=== PATIENT | female | born 1995 | race African-American/Black ===

== ENCOUNTER 2018-08-02 13:54 | Outpatient (CLI) | payer OTHER ==
[2018-08-02 14:29] LABS: ADD UMIC YES; UR ASCORBIC ACID NEGATIVE (NEGATIVE); UR BACTERIA FEW /HPF (NONE SEEN); UR BILIRUBIN (Dip) NEGATIVE (NEGATIVE); UR BLOOD (Dip) NEGATIVE (NEGATIVE); UR CLARITY CLOUDY (CLEAR); UR COLOR YELLOW (YELLOW); UR GLUCOSE (Dip) NEGATIVE (NEGATIVE); UR KETONES (Dip) NEGATIVE (NEGATIVE); UR LEUKOCYTE ESTERASE (Dip) TRACE Leu/ul (NEGATIVE); UR MUCUS MODERATE /HPF (NONE SEEN); UR NITRITE (Dip) NEGATIVE (NEGATIVE); UR RBC 1 /HPF (0-5); UR SPECIFIC GRAVITY (Dip) 1.019 (1.003-1.030); UR SQUAMOUS EPITHELIAL CELL FEW /HPF (FEW); UR TOTAL PROTEIN (Dip) NEGATIVE (NEGATIVE); UR UROBILINOGEN (Dip) 1+ mg/dL (NEGATIVE); UR WBC 5 /HPF (0-5)
== END 2018-08-02 15:25 | disposition home or self-care (01) ==
LOC: OBT 13:54 → L-D 13:56 → OBT 15:25
DX: O26.892 Other specified pregnancy related conditions, second trimester (principal); R51 Headache; M54.9 Dorsalgia, unspecified; Z3A.22 22 weeks gestation of pregnancy
CPT/HCPCS: 76815; 76817; 81001

== ENCOUNTER 2018-08-02 15:30 | Emergency (ER) | payer OTHER ==
[2018-08-02] MEDS: METOCLOPRAMIDE 10 MG TAB PO (16:25)
[2018-08-02] MEDS: ACETAMINOPHEN 325 MG TAB PO (16:25)
== END 2018-08-02 17:32 | disposition home or self-care (01) ==
LOC: FTE 17:32
DX: O99.89 Other specified diseases and conditions complicating pregnancy, childbirth and the puerperium (principal); R51 Headache; Z3A.22 22 weeks gestation of pregnancy
CPT/HCPCS: 99283; Z7502

== ENCOUNTER 2018-10-20 13:49 | Inpatient (IN) | payer OTHER ==
[2018-10-20] MEDS: LACTATED RINGER'S 1,000 ML IV ×2 (16:02→18:45)
[2018-10-20] MEDS: TERBUTALINE 1 MG/ML INJ SC (16:03)
[2018-10-20 16:23] LABS: ADD UMIC NO; UR ASCORBIC ACID 20 mg/dL (NEGATIVE); UR BILIRUBIN (Dip) NEGATIVE (NEGATIVE); UR BLOOD (Dip) NEGATIVE (NEGATIVE); UR CLARITY CLEAR (CLEAR); UR COLOR YELLOW (YELLOW); UR GLUCOSE (Dip) NEGATIVE (NEGATIVE); UR KETONES (Dip) NEGATIVE (NEGATIVE); UR LEUKOCYTE ESTERASE (Dip) NEGATIVE Leu/ul (NEGATIVE); UR NITRITE (Dip) NEGATIVE (NEGATIVE); UR SPECIFIC GRAVITY (Dip) 1.014 (1.003-1.030); UR TOTAL PROTEIN (Dip) NEGATIVE (NEGATIVE); UR UROBILINOGEN (Dip) 1+ mg/dL (NEGATIVE)
[2018-10-20] MEDS: BETAMET NA PHOS/AC(6 MG/ML) 2 ML INJ SYG IM (18:18)
[2018-10-20] MEDS: MAGNESIUM SULFATE 4 GM/100 ML 100 ML IV (18:46)
[2018-10-20] MEDS: MAGNESIUM SULFATE 40GM/1000ML 1,000 ML IV (19:11)
[2018-10-20 20:52] LABS: AMPHETAMINE/METHAMPHETAMINE Negative (NEGATIVE); BARBITURATES Negative (NEGATIVE); BENZODIAZEPINES Negative (NEGATIVE); CANNABINOIDS Negative (NEGATIVE); COCAINE Negative (NEGATIVE); OPIATES Negative (NEGATIVE)
[2018-10-21 01:10] LABS: MAGNESIUM 4.3 mg/dl (1.7-2.5)
[2018-10-21 06:14] LABS: MAGNESIUM 4.8 mg/dl (1.7-2.5)
[2018-10-21] MEDS: PRENATAL VITAMIN PO (08:54)
[2018-10-21] MEDS: FERROUS SULFATE (EC) 325 MG TAB PO (08:54)
[2018-10-21] MEDS: LACTATED RINGER'S 1,000 ML IV ×2 (08:55→23:04)
[2018-10-21] MEDS: ACETAMINOPHEN 325 MG TAB PO ×2 (11:53→18:24)
[2018-10-21] MEDS: MAGNESIUM SULFATE 40GM/1000ML 1,000 ML IV (15:04)
[2018-10-21] MEDS: BETAMET NA PHOS/AC(6 MG/ML) 2 ML INJ SYG IM (18:24)
[2018-10-21] MEDS: ACETAMINOPHEN 1000MG/100ML IV 100 ML IVPB (20:46)
[2018-10-22 01:28] LABS: MAGNESIUM 5.5 mg/dl (1.7-2.5)
[2018-10-22 06:58] LABS: MAGNESIUM 5.4 mg/dl (1.7-2.5)
[2018-10-22] MEDS: FERROUS SULFATE (EC) 325 MG TAB PO (10:25)
[2018-10-22] MEDS: PRENATAL VITAMIN PO (10:25)
[2018-10-22 12:16] LABS: MAGNESIUM 4.3 mg/dl (1.7-2.5)
[2018-10-22] MEDS: LACTATED RINGER'S 1,000 ML IV (13:27)
[2018-10-22] MEDS: MAGNESIUM SULFATE 40GM/1000ML 1,000 ML IV (13:27)
[2018-10-22 18:14] LABS: MAGNESIUM 4.9 mg/dl (1.7-2.5)
[2018-10-22 18:47] LABS: HEPATITIS B SURFACE ANTIGEN NEGATIVE (NEGATIVE)
[2018-10-22 19:04] LABS: HEPATITIS C VIRAL ANTIBODY NEGATIVE (NEGATIVE); HIV 1&2 ANTIBODY NEGATIVE (NEGATIVE)
[2018-10-23] MEDS: PRENATAL VITAMIN PO (12:01)
[2018-10-23] MEDS: FERROUS SULFATE (EC) 325 MG TAB PO (12:01)
[2018-10-24] MEDS: FERROUS SULFATE (EC) 325 MG TAB PO (09:06)
[2018-10-24] MEDS: PRENATAL VITAMIN PO (09:06)
== END 2018-10-24 12:13 | disposition home or self-care (01) | DRG 832 ==
LOC: OBT 13:49 → L-D 13:49 → PP1 10-22 23:34 → L-D 14:15 → OBT 17:40 → L-D 17:40
DX: O60.03 Preterm labor without delivery, third trimester (principal); O26.873 Cervical shortening, third trimester; Z3A.33 33 weeks gestation of pregnancy
CPT/HCPCS: 36415; 76817; 76818; 80307; 81003; 83735; 86703; 86803; 87081; 87086; 87340; 93970